=== PATIENT | female | born 1975 | race Caucasian/White ===

== ENCOUNTER → 2020-05-25 | Outpatient (CLI) | payer BC, OTHER | LOC: LAB 10:49 | PROVIDERS: ATTEND Nurse Practitioner | DX: Z20.828 Contact with and (suspected) exposure to other viral communicable diseases (principal) ==

== ENCOUNTER → 2020-06-06 | Outpatient (CLI) | payer BC, OTHER | LOC: LAB 15:27 | PROVIDERS: ATTEND Nurse Practitioner | DX: R05 Cough (principal); Z20.828 Contact with and (suspected) exposure to other viral communicable diseases ==